=== PATIENT | male | born 1955 | race Caucasian/White ===

== ENCOUNTER 2019-07-17 08:19 | Outpatient (CLI) | payer OTHER, SELFPAY ==
--- NOTE | 2019-07-17 | XR_ITS ---
WS: [id number] RIGHT WRIST: 3 VIEW(S) TECHNIQUE: PA, oblique and lateral. HISTORY: RIGHT WRIST PAIN COMPARISON: None available. Orthopedic plate and screws in the distal radius. There is an additional suture in the distal radius. No acute fracture. Small well-corticated osseous densities distal to the ulna probably from an old fracture. Moderate na rrowing of the radiocarpal joint space with irregularity along the cortical surfaces. Mild widening o f the scapholunate interval. Mild soft tissue edema. XR/XR wrist RT min 3V* [id number] IMPRESSION: 1. Status post ORIF distal radius and ulna. 2. 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 3. Mild soft tissue swelling.
== END 2019-07-17 08:20 | disposition home or self-care (01) ==
LOC: RADOUTREAD 10:28
PROVIDERS: Family Provider Family Medicine; Visit Provider Nurse Practitioner Family
DX: Z76.89 Persons encountering health services in other specified circumstances (principal)

== ENCOUNTER 2023-01-20 17:18 | Emergency (ER) | payer MEDICARE, OTHER, SELFPAY ==
[2023-01-20 17:23] VITALS: BP 168/90; PULSE 81; RESP 16; O2SAT 95; BMI 25.1
--- NOTE | 2023-01-20 17:30 | ED_ITS ---
HPI - Male Genitourinary General: Chief complaint: Urogenital-Male Stated complaint: Can't Urinate Time Seen by Provider: 01/20/23 17:28 Source: patient Mode of arrival: ambulatory Limitations: no limitations History of Present Illness: 67-year-old male states he has not been able to urinate since noon today. He states he feels like his bladder is extremely full and he needs to urinate but he states he is only able to dribble. He denies any back pain denies any fevers. He states he has had some difficulty urinating the past but never a full obstruction. He had no vomiting or diarrhea. Associated symptoms: Deny nausea or vomiting Review of Systems Const: Denies: fever(s), chills, body aches or change in appetite ENMT: Denies: throat pain or dental pain Card: Denies: chest pain Resp: Denies: dyspnea GI: Denies: abdominal pain, nausea, vomiting or diarrhea : Reports: difficulty urinating and urinary dribbling Musc: Denies: neck pain or back pain Skin/Breast: Denies: rash Neuro: Denies: headache(s) Physical Exam Const: COMMON NORMALS: no acute distress and patient oriented x3 HENMT: COMMON NORMALS: normocephalic and atraumatic HEAD & SCALP: normocephalic and atraumatic Eye: COMMON NORMALS: conjunctivae normal CONJUNCTIVA: Yes conjunctivae normal Neck/C-Spine: COMMON NORMALS: supple Chest: COMMONS NORMALS: normal inspection of the chest Resp: COMMON NORMALS: normal respiratory effort Cardio: COMMON NORMALS: regular rate and regular rhythm RATE: regular rate RHYTHM: regular rhythm GI: OTHER: Suprapubic tenderness abdomen soft nondistended : COMMON NORMALS: Yes no CVA tenderness BLADDER/KIDNEY EXAM: Yes no CVA tenderness Back/Pelvis: COMMON NORMALS: no CVA tenderness Extremity: COMMON NORMALS: normal to inspection Neuro: COMMON NORMALS: patient oriented x3 Course Vital Signs: Vital signs: Vital Signs Pulse Rate 81 01/20/23 17:23 Respiratory Rate 16 01/20/23 17:23 Blood Pressure 168/90 01/20/23 17:23 Pulse Oximetry 95 01/20/23 17:23 Oxygen Delivery Me thod Room Air 01/20/23 17:23 [facility] - Male Medical Decision Making Patient presents here with urinary retention he feels much improved after he had catheter placed Hernán[place] was left in place with leg bag we will get him follow-up with urology he is return if worsening he understands agrees to plan. Medical Records I reviewed the patient's medical records. Lab Data I reviewed the patient's lab results. Discharge Plan Discharge Patient Disposition: Home Clinical Impression: Acute retention of urine Condition: Stable Prescriptions: New tamsulosin [Flomax] 0.4 mg capsule 0.4 mg PO DAILY Qty: 10 0RF Discharge Orders: Discharge ED (Routine); Ordered 01/20/23 Ordered By: Timmy Haney Referrals: Petey Mcgarry DO [Primary Care Provider] - Discharge Diet: Advance as tolerated Discharge Activity: Resume usual activity Patient Instructions: Urinary Retention in Men (ED) Coding Level of Care Code ED Environmental Health Aide for Mattie Webb
[2023-01-20 17:43] VITALS: BP 139/77; PULSE 73; O2SAT 96
[2023-01-20 17:46] VITALS: TEMP 37.1
[2023-01-20 18:22] VITALS: BP 123/70; PULSE 70; O2SAT 95
--- NOTE | 2023-01-21 09:11 | DCPLANNER ---
area field manager had message to schedule a follow up appointment for patient with urology. area field manager spoke with patient to confirm where patient wanted referral sent, patient stated that he would like the referral sent to [facility]. area field manager faxed patients information to the urology clinic, it will be reviewed and clinic will call patient with appointment information.
== END 2023-01-20 18:20 | disposition home or self-care (01) ==
PROVIDERS: Emergency Provider Emergency Medicine; PCP Internal Medicine
DX: R33.9 Retention of urine, unspecified (principal)
CPT/HCPCS: 51702; 99282